=== PATIENT | female | born 1995 | race Asian ===

== ENCOUNTER 2017-02-22 00:09 | Emergency (ER) | payer OTHER ==
--- NOTE | 2017-02-22 00:50 | CPEKG ---
Heart Rate: 79 RR Interval: 759 P-R Interval: 152 QRSD Interval: 72 QT Interval: 384 QTC Interval: 441 P [place]: 63 QRS [place]: 83 T Wave [place]: 44 EKG Severity - NORMAL ECG - EKG Impression: SINUS RHYTHM Electronically Signed By: Eleonora Leone 22-Feb-2017 07:16:22
--- NOTE | 2017-02-22 01:16 | EDPHY ---
H & P Stated Complaint: syncopal episode, struck head Time Seen by Provider: 02/22/17 00:39 HPI/ROS: HPI The patient presents with an episode of ALOC which occurred just prior to arrival. She was at a bar, drinking alcohol, standing when she began to feel hot and then felt dizzy. She loss consciousness, hitting her left head on the car and then falling backwards to the ground. She then remembers her boyfriend standing above her. She felt better afterwards. She did not have any chest pain, shortness of breath, palpitations. She has no prior history of syncope. She now is complaining of pain at the site where she hit her head. She does not have any nausea, vomiting, vision changes, dizziness, numbness weakness or confusion.. REVIEW OF SYSTEMS Constitutional: No fever, no chills. Eyes: No discharge. ENT: No sore throat. Cardiovascular: No chest pain, no palpitations. Respiratory: No cough, no shortness of breath. Gastrointestinal: No abdominal pain, no vomiting. Genitourinary: No hematuria. Musculoskeletal: No back pain. Skin: No rashes. Neurological: No headache. 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 Soc Hx: Alcohol use tonight PHYSICAL General Appearance: Alert, no distress Head: Left parietal region with 3 cm scalp hematoma, no depression of skull, posterior to this there is a surgical scar without any surrounding tenderness Eyes: Pupils equal and round no pallor or injection ENT, Mouth: Mucous membranes moist Respiratory: There are no retractions, lungs are clear to auscultation Cardiovascular: Regular rate and rhythm Gastrointestinal: Abdomen is soft and non-tender, no masses, bowel sounds normal Neurological: A&O x3, cranial nerves 2-12 intact, 5/5 strength in upper and lower extremities which is symmetric, normal finger to nose testing Skin: Warm and dry, no rashes Musculoskeletal: Neck is supple non tender Extremities: symmetrical, full range of motion Psychiatric: Patient is oriented X 3, there is no agitation Source: Patient, Family Exam Limitations: No limitations - Personal History LMP (Females 10-55): Over 28 Days Ago Current Tetanus/Diphtheria Vaccine: Yes - Medical/Surgical History Hx Asthma: Yes Hx Chronic Respiratory Disease: No Hx Diabetes: No Hx Cardiac Disease: No Hx Renal Disease: No Hx Cirrhosis: No Hx Alcoholism: No Hx HIV/AIDS: No Hx Splenectomy or Spleen Trauma: No Other PMH: PSHx: L parietal/occipatal surgery for biopsy for benign tumor. PMHx : benign brain tumor, asthma, environmental allergies - Social History Smoking Status: Never smoked Constitutional: Initial Vital Signs Temperature (C) 36.6 C 02/22/17 00:12 Heart Rate 85 02/22/17 00:12 Respiratory Rate 16 02/22/17 00:12 Blood Pressure 113/81 H 02/22/17 00:12 O2 Sat (%) 100 02/22/17 00:12 O2 Delivery Mode Room Air Allergies/Adverse Reactions: No Known Allergies Allergy (Verified 07/27/15 12:53) Medical Decision Making - Diagnostics EKG Interpretation: EKG: Complete interpretation has been separately recorded in the [facility] archive. Summary impression: Normal sinus rhythm Differential Diagnosis: This is a 21-year-old healthy female who presents with a syncopal episode while standing at a bar with some preceding symptoms of dizziness and feeling hot. She now feels well, she denies any preceding chest pain, shortness of breath, palpitations. On exam, she does have a scalp hematoma with no signs of skull depression. This has improved with an ice pack. Differential diagnosis includes vasovagal syncope, arrhythmia, scalp hematoma, less likely intracranial hemorrhage given no nausea, vomiting, vision changes, behavioral change, neurologic deficit. In the emergency room, the patient was observed, she had no worsening of her symptoms. EKG was performed and showed no signs of arrhythmia. She will be discharged home in the care of her family. I have encouraged her to use ice packs and Tylenol or ibuprofen as needed. We have discussed signs and symptoms of a concussion. I do not think she needs CT imaging of her brain given her normal neurologic evaluation. Departure - Departure Disposition: Home, Routine, Self-Care Clinical Impression: Syncope Qualifiers: Syncope type: vasovagal syncope Qualified Code(s): R55 - Syncope and collapse Scalp hematoma Qualifiers: Encounter type: initial encounter Qualified Code(s): S00.03XA - Contusion of scalp, initial encounter Condition: Good Instructions: Syncope (ED) Additional Instructions: Please make sure to get plenty of rest and drink fluids. You can take ibuprofen or Tylenol as needed for your head pain. You should also use ice. If you continue to have any symptoms of headache, vomiting, confusion, please follow-up with your regular doctor in 2 days. Referrals: Ruthie Torres MD [Primary Care Provider] - As per Instructions
[2017-02-22 01:57] VITALS: BP 106/69; PULSE 88; RESP 18; TEMP 98.6; O2SAT 99
== END 2017-02-22 01:58 | disposition home or self-care (01) ==
DX: S00.03XA Contusion of scalp, initial encounter (principal); R55 Syncope and collapse; J45.909 Unspecified asthma, uncomplicated; W18.09XA Striking against other object with subsequent fall, initial encounter

== ENCOUNTER 2017-02-23 12:04 | Emergency (ER) | payer OTHER ==
[2017-02-23] MEDS ORDERED: ONDANSETRON 4 MG/2 ML VIAL IVP ONE (12:19)
[2017-02-23] MEDS ORDERED: NS 1,000 ML IV ONE (12:19)
[2017-02-23 12:37] LABS: % IMMATURE GRANULYOCYTES 0.4 % (0.0-1.1); ABSOLUTE IMMATURE GRANULOCYTES 0.04 10^3/uL (0.00-0.10); ADD DIFF? NO; ADD MORPH? NO; ADD SCAN? NO; ATYPICAL LYMPHOCYTE FLAG 0 (0-99); FRAGMENT RBC FLAG 0 (0-99); HEMATOCRIT 44.4 % (38.0-47.0); HEMOGLOBIN 15.3 g/dL (12.6-16.3); LEFT SHIFT FLG 0 (0-99); LIPEMIA HEMOLYSIS FLAG 90 (0-99); MEAN CELL HEMOGLOBIN 31.4 pg (27.9-34.1); MEAN CELL HEMOGLOBIN CONCENTR. 34.5 g/dL (32.4-36.7); MEAN PLATELET VOLUME 9.5 fL (8.7-11.7); PLATELET CLUMPS FLAG 0 (0-99); PLATELET COUNT 301 10^3/uL (150-400); RED BLOOD CELL COUNT 4.88 10^6/uL (4.18-5.33); RED CELL DISTRIBUTION WIDTH 12.6 % (11.5-15.2)
--- NOTE | 2017-02-23 12:37 | EDPHY ---
H & P Stated Complaint: DIZZY, KOHLI AFTER HITTING HEAD Source: Patient, Family Exam Limitations: No limitations - Personal History Current Tetanus/Diphtheria Vaccine: Yes - Medical/Surgical History Hx Asthma: Yes Hx Chronic Respiratory Disease: No Hx Diabetes: No Hx Cardiac Disease: No Hx Renal Disease: No Hx Cirrhosis: No Hx Alcoholism: No Hx HIV/AIDS: No Hx Splenectomy or Spleen Trauma: No Other PMH: PSHx: L parietal/occipatal surgery for biopsy for benign tumor. PMHx : benign brain tumor, asthma, environmental allergies - Social History Smoking Status: Never smoked HPI/ROS: CHIEF COMPLAINT: Headache, dizziness, paresthesia HISTORY OF PRESENT ILLNESS: Patient complains of a left-sided temporal headache , dizziness, paresthesia of the hands. She initially fell Friday night off a bar stool, landing on her head. There was a loss of consciousness that was brief. It is unclear if this preceded the fall was post fall. Since then she has had a mild headache. She reports hematoma on the left side of the scalp that has improved. She was feeling better yesterday until late last night. At that time she became dizzy and had some nausea and vomiting. She has had persistent symptoms throughout the night and this morning. She also has some paresthesias of both hands. No chest pain. No back pain. No abdominal pain. No lower extremity sensory or motor changes. No incontinence of bowel or bladder. No saddle anesthesia. No other associated complaints or modifying factors. REVIEW OF SYSTEMS: Ten systems reviewed and are negative unless otherwise noted in the HPI PERTINENT MEDICAL HISTORY: Asthma, neurofibroma EXAMINATION General Appearance: Alert, no distress Head: normocephalic. Small hematoma on the left temporal parietal scalp. No laceration or abrasion. No ecchymosis. No depression deformity. Eyes: Pupils equal and round, no conjunctival pallor or injection. EOMs intact. No nystagmus. ENT, Mouth: Mucous membranes moist. Uvula midline. No erythema or edema. Airway is widely patent. Neck: Normal inspection, supple, non-tender. No rigidity or meningismus. Respiratory: Lungs are clear to auscultation. No wheezing, rhonchi or crackles. Cardiovascular: Regular rate and rhythm. No murmur. Pulses intact distally. Gastrointestinal: Abdomen is soft and nontender Back: non-tender, no bony abnormalities Neurological: GCS 15. A&Ox4, nonfocal, strength is 5/5 in all 4 limbs. No dysmetria. No pronator drift. Skin: Warm and dry, no rash. No lacerations abrasions or contusions. Small scalp hematoma as described above Extremities: Nontender, no pedal edema. Symmetric range of motion all 4 limbs. Psychiatric: Mood and affect normal DIFFERENTIAL DIAGNOSES: Including but not limited to postconcussion headache dizziness, syncope, vasovagal syndrome, intra cranial hemorrhage, intracranial edema MDM: 12:20 p.m. Headache, dizziness and paresthesia. This is after closed head injury on Friday night. She initially presented here with a normal EKG. No further test performed. I have ordered laboratory studies and a CT scan of the head due to the syncope/loss of consciousness, headache and neuro complaints. 1:15 p.m. Notified by radiologist Dr. Caballero. No acute findings on the CT scan of the head. There is a scalp hematoma consistent with her clinical exam. 1:25 p.m. I discussed the findings with the patient. She remains somewhat dizzy and nauseated. We have attempted to ambulate her and this was unsuccessful. She is unable to walk without holding on to someone or something. She drifts to the right. Her nausea and dizziness are worse when ambulating. I will order an MRI of the brain without contrast at this time. 3:15 p.m. Patient is now being taken over MRI. I have watched her ambulate since the initial attempt and she has improved. She remains nonfocal. She is somewhat dizzy but not vomiting. At this time, Dr. Dumont will assume care of the patient. Please see his note for final disposition. Plan for discharge home if the MRI is unremarkable. SUPERVISION: Patient was evaluated in conjunction with the supervising physician. Please see their note for details. (Edgardo Romo) Constitutional: Initial Vital Signs Temperature (C) 36.8 C 02/23/17 12:12 Heart Rate 78 02/23/17 12:12 Respiratory Rate 24 H 02/23/17 12:12 Blood Pressure 106/78 02/23/17 12:12 O2 Sat (%) 96 02/23/17 12:12 O2 Delivery Mode Room Air Allergies/Adverse Reactions: No Known Allergies Allergy (Verified 07/27/15 12:53) Home Medications: Medication Instructions Recorded Ondansetron Odt [Zofran Odt] 4 mg PO Q4PRN #6 tab 02/23/17 Medical Decision Making - Diagnostics EKG Interpretation: 12-lead EKG interpreted by me; official reading is in trace master. My interpretation is sinus rhythm rate 63 (Camron Dumont) Imaging Results: MRI per Federico at 1552 has soft tissue mass unchanged since 2014, otherwise negative. (Camron Dumont) Other Provider: PHYSICIAN DOCUMENTATION: The patient was initially evaluated and managed by the Physician Certified Professional Ergonomist and Dr. Pickett. Care assumed from Dr. Pickett the original physician at 1400. I have reviewed the chart and I examined the patient myself at 1555. History confirmed as syncope on Friday, leaning against the bar, felt hot and then remembers her boyfriend standing over her. Today has some lightheadedness and/ or vertigo, tingling hands and feet. Physical findings as follows: Patient has fluent speech was able to walk to the bathroom and back. Not currently ataxic. Symptoms on Friday sound more like a vasovagal episode, EKG reviewed and suspicion for malignant dysrhythmia is low. Today her having hands and feet tingling more likely hyperventilation. Vertigo or lightheaded today, no neck pain, not ataxic on my exam. No neck pain, not ataxic on my exam, no cerebellar stroke or ischemia on MRI, vertebral dissection considered but I think unlikely. Her symptoms certainly could be related to post concussive symptoms. At this point MRI results were discussed with the patient and she is stable for discharge. Per plan from [place], discharge patient if MRI negative and she is ambulatory. (Camron Dumont) - Data Points Laboratory Results: Laboratory Results 02/23/17 12:30 02/23/17 12:30 Medications Given: Discontinued Medications Sodium Chloride (Ns) 1,000 mls @ 0 mls/hr IV ONCE ONE PRN Reason: Wide Open Stop: 02/23/17 12:20 Last Admin: 02/23/17 12:31 Dose: 1,000 mls Ondansetron HCl (Zofran) 4 mg IVP EDNOW ONE Stop: 02/23/17 12:20 Last Admin: 02/23/17 12:31 Dose: 4 mg Departure - Departure Disposition: Home, Routine, Self-Care Clinical Impression: Concussion, Vasovagal syncope Condition: Good Instructions: Syncope (ED), Concussion (ED) Referrals: Ruthie Torres MD [Primary Care Provider] - As per Instructions Prescriptions: Ondansetron Odt [Zofran Odt] 4 mg PO Q4PRN #6 tab
[2017-02-23 12:48] LABS: ANION GAP 15 mEq/L (8-16); CALCIUM 10.3 mg/dL (8.5-10.4); CARBON DIOXIDE 22 mEq/l (22-31); CHLORIDE 104 mEq/L (97-110); CREATININE 0.7 mg/dL (0.6-1.0); GLOMERULAR FILTRATION RATE > 60; GLUCOSE 124 mg/dL (70-100); POTASSIUM 4.2 mEq/L (3.5-5.2); SODIUM 141 mEq/L (134-144)
--- NOTE | 2017-02-23 15:05 | CPEKG ---
Heart Rate: 63 RR Interval: 952 P-R Interval: 140 QRSD Interval: 72 QT Interval: 424 QTC Interval: 435 P [place]: 65 QRS [place]: 84 T Wave [place]: 47 EKG Severity - NORMAL ECG - EKG Impression: SINUS RHYTHM Electronically Signed By: Camron Dumont 23-Feb-2017 15:07:37
[2017-02-23 16:11] VITALS: BP 107/70; PULSE 72; RESP 18; TEMP 98.6; O2SAT 96
== END 2017-02-23 16:16 | disposition home or self-care (01) ==
DX: S06.0X0A Concussion without loss of consciousness, initial encounter (principal); J45.909 Unspecified asthma, uncomplicated; W08.XXXA Fall from other furniture, initial encounter
CPT/HCPCS: 96374; J2405